=== PATIENT | female | born 1945 | race Caucasian/White ===

== ENCOUNTER 2020-04-22 15:07 | Emergency (ER) | payer OTHER ==
[2020-04-22 15:30] VITALS: BMI 22.6
[2020-04-22] MEDS ORDERED: BAMLANIVIMAB 700 MG in SODIUM CHLORIDE 180 ML IVPB ONE (15:39)
[2020-04-22 16:31] LABS: HEMATOCRIT 37.3 % (32.4-45.2); HEMOGLOBIN 12.3 GM/dL (10.7-15.3); MCH 27.9 pg (25.7-33.7); MEAN CELL VOLUME 84.5 fl (80-96); MEAN PLT VOLUME 7.4 fl (7.5-11.1); PLATELET COUNT 193 K/MM3 (134-434); RBC 4.42 M/mm3 (3.60-5.2); RDW 14.2 % (11.6-15.6); WHITE BLOOD COUNT 3.1 K/mm3 (4.0-10.0)
[2020-04-22 16:49] LABS: CALCIUM 9.3 mg/dL (8.5-10.1); POTASSIUM 3.7 mmol/L (3.5-5.1)
[2020-04-22 16:50] LABS: BLOOD UREA NITROGEN 11.9 mg/dL (7-18)
[2020-04-22 16:54] LABS: CREATININE 0.7 mg/dL (0.55-1.3)
[2020-04-22] MEDS ORDERED: ACETAMINOPHEN 500 MG TABLET (FP) PO ONE (17:55)
[2020-04-22 18:53] VITALS: PULSE 71
[2020-04-22 18:55] VITALS: BP 124/70; TEMP 97.2
== END 2020-04-22 21:00 | disposition home or self-care (01) ==
LOC: JER 15:07
DX: U07.1 COVID-19 (principal)
CPT/HCPCS: 36415; 80048; 85027; 99284-25; M0239; Q0239

== ENCOUNTER 2021-09-21 16:25 | Inpatient (IN) | payer OTHER ==
[2021-09-21] MEDS ORDERED: ACETAMINOPHEN 1000 MG/100 ML BAG IVPB ONE (17:26)
[2021-09-21] MEDS ORDERED: ACETAMINOPHEN INJECTION 100 ML IVPB ONE (18:39)
[2021-09-21] MEDS ORDERED: DIPHTH,PERTUSS(ACELL),TET 0.5 ML DISP.SYRIN IM ONE ×2 (19:05→19:36)
[2021-09-21 19:24] LABS: BASO % 0.8 % (0-2.0); EOS % 2.2 % (0-4.5); HEMATOCRIT 35.4 % (32.4-45.2); HEMOGLOBIN 11.6 GM/dL (10.7-15.3); LYMPH % 14.6 % (8-40); MCH 25.8 pg (25.7-33.7); MCHC 32.7 g/dl (32.0-36.0); MEAN CELL VOLUME 78.8 fl (80-96); MEAN PLT VOLUME 7.6 fl (7.5-11.1); MONO % 5.9 % (3.8-10.2); NEUT % 76.5 % (42.8-82.8); PLATELET COUNT 299 10^3/uL (134-434); RBC 4.49 M/mm3 (3.60-5.2); RDW 15.9 % (11.6-15.6); WHITE BLOOD COUNT 9.1 K/mm3 (4.0-10.0)
[2021-09-21 19:30] LABS: INR 0.97 (0.83-1.09); PROTHROMBIN TIME (PATIENT) 11.2 SEC (9.7-13.0)
[2021-09-21 19:33] LABS: ACTIVATED PTT 30.8 SECONDS (25.2-36.5)
[2021-09-21 19:39] LABS: URINE APPEARANCE CLEAR; URINE BILIRUBIN NEGATIVE (NEGATIVE); URINE COLOR YELLOW; URINE GLUCOSE (UA) NEGATIVE (NEGATIVE); URINE KETONE NEGATIVE (NEGATIVE); URINE LEUK ESTERASE NEGATIVE (NEGATIVE); URINE NITRITE NEGATIVE (NEGATIVE); URINE PROTEIN NEGATIVE (NEGATIVE); URINE UROBILINOGEN 0.2 mg/dL (0.2-1.0)
[2021-09-21 19:57] LABS: ALBUMIN 4.1 g/dl (3.4-5.0); BLOOD UREA NITROGEN 15.2 mg/dL (7-18)
[2021-09-21 20:00] LABS: CREATININE 0.7 mg/dL (0.55-1.3)
[2021-09-21 20:02] LABS: BILIRUBIN,TOTAL 0.5 mg/dL (0.2-1); TOT PROT 7.2 g/dl (6.4-8.2)
[2021-09-21] MEDS ORDERED: ONDANSETRON 4 MG/2 ML VIAL ONE (21:03)
[2021-09-21] MEDS ORDERED: ONDANSETRON 4 MG/2 ML VIAL IVPUSH ONE (21:03)
[2021-09-21] MEDS ORDERED: ONDANSETRON 4 MG/2 ML VIAL IVPUSH PRN (21:20)
[2021-09-21] MEDS ORDERED: ACETAMINOPHEN 1000 MG/100 ML BAG IVPB PRN (21:21)
[2021-09-21] MEDS ORDERED: LABETALOL HCL 5 MG/1 ML (100MG/20 ML VIAL) IVPUSH PRN (21:24)
[2021-09-21] MEDS ORDERED: DEXTROSE 5%-WATER - 250 ML IV SCH (21:30)
[2021-09-21] MEDS ORDERED: MELATONIN 5 MG TABLETS PO PRN (21:36)
[2021-09-21] MEDS ORDERED: CHLORHEXIDINE GLUCONATE 4% CLEANSER FOR DECOLONIZATION TP SCH (22:00)
[2021-09-21] MEDS: MUPIROCIN 2% TOPICAL OINTMENT FOR DECOLONIZATION NS SCH (23:21)
[2021-09-21 23:29] VITALS: BMI 47.9
[2021-09-22] MEDS ORDERED: clonazePAM 0.5 MG TABLET PO ONE (00:07)
[2021-09-22 06:51] LABS: BASO % 0.7 % (0-2.0); EOS % 2.4 % (0-4.5); HEMATOCRIT 30.9 % (32.4-45.2); HEMOGLOBIN 10.3 GM/dL (10.7-15.3); LYMPH % 20.2 % (8-40); MCH 26.3 pg (25.7-33.7); MCHC 33.2 g/dl (32.0-36.0); MEAN CELL VOLUME 79.2 fl (80-96); MEAN PLT VOLUME 7.7 fl (7.5-11.1); MONO % 9.3 % (3.8-10.2); NEUT % 67.4 % (42.8-82.8); PLATELET COUNT 240 10^3/uL (134-434); RBC 3.89 M/mm3 (3.60-5.2); WHITE BLOOD COUNT 5.8 K/mm3 (4.0-10.0)
[2021-09-22 06:52] LABS: ACTIVATED PTT 28.1 SECONDS (25.2-36.5); PROTHROMBIN TIME (PATIENT) 11.5 SEC (9.7-13.0)
[2021-09-22 07:13] LABS: CALCIUM 9.3 mg/dL (8.5-10.1)
[2021-09-22 07:14] LABS: ALBUMIN 3.4 g/dl (3.4-5.0); BLOOD UREA NITROGEN 13.3 mg/dL (7-18); MAGNESIUM 2.1 mg/dL (1.8-2.4)
[2021-09-22] MEDS ORDERED: DEXTROSE 5%-0.45% SALINE 1,000 ML IV SCH ×2 (07:15→07:30)
[2021-09-22 07:17] LABS: CREATININE 0.5 mg/dL (0.55-1.3)
[2021-09-22 07:18] LABS: BILIRUBIN,TOTAL 0.4 mg/dL (0.2-1)
[2021-09-22] MEDS ORDERED: LACTATED RINGERS SOLUTION 1,000 ML/1,000 ML INFUS.BAG IV SCH (09:30)
[2021-09-22] MEDS: MUPIROCIN 2% TOPICAL OINTMENT FOR DECOLONIZATION NS SCH (09:49)
[2021-09-22] MEDS ORDERED: ACETAMINOPHEN 1000 MG/100 ML BAG IVPB PRN (12:01)
[2021-09-22] MEDS ORDERED: LABETALOL HCL 5 MG/1 ML (100MG/20 ML VIAL) IVPUSH PRN (12:01)
[2021-09-22] MEDS ORDERED: ONDANSETRON 4 MG/2 ML VIAL IVPUSH PRN (12:01)
[2021-09-22] MEDS: LACTATED RINGERS SOLUTION 1,000 ML/1,000 ML INFUS.BAG IV SCH (13:10)
[2021-09-22] MEDS ORDERED: TRIMETHOBENZAMIDE HCL 200MG/2ML INJ IM PRN (18:03)
[2021-09-22 21:51] LABS: URINE BARBITURATES NEGATIVE (NEGATIVE)
[2021-09-22 21:52] LABS: COCAINE, UR NEGATIVE (NEGATIVE); METHADONE, UR NEGATIVE (NEGATIVE); PHENCYCLIDINE,URINE NEGATIVE (NEGATIVE); URINE BENZODIAZEPINES NEGATIVE (NEGATIVE)
[2021-09-22 22:03] LABS: OPIATES, URI POSITIVE (NEGATIVE); URINE AMPHETAMINES NEGATIVE (NEGATIVE)
[2021-09-22] MEDS: MELATONIN 5 MG TABLETS PO PRN (22:52)
[2021-09-23] MEDS: LACTATED RINGERS SOLUTION 1,000 ML/1,000 ML INFUS.BAG IV SCH (13:23)
[2021-09-23] MEDS ORDERED: traMADol HCL 50 MG TABLET PO PRN (14:40)
[2021-09-23] MEDS: clonazePAM 0.5 MG TABLET PO PRN (17:10)
[2021-09-23] MEDS ORDERED: SIMETHICONE 80 MG TAB.CHEW (FP) PO PRN (21:15)
[2021-09-23] MEDS: LATANOPROST 0.005% OPHTH SOLN 2.5ML BOTTLE OU SCH (22:24)
[2021-09-23] MEDS: TIMOLOL 0.25% OPHTHALMIC SOL 5 ML BOTTLE OU SCH (22:24)
[2021-09-24] MEDS: ACETAMINOPHEN 325 MG TABLET (FP) PO PRN ×2 (03:36→08:26)
[2021-09-24] MEDS: clonazePAM 0.5 MG TABLET PO PRN ×2 (08:26→21:56)
[2021-09-24 08:44] LABS: EOS % 3.1 % (0-4.5); HEMATOCRIT 31.1 % (32.4-45.2); HEMOGLOBIN 10.4 GM/dL (10.7-15.3); LYMPH % 22.2 % (8-40); MCH 26.4 pg (25.7-33.7); MCHC 33.3 g/dl (32.0-36.0); MEAN CELL VOLUME 79.3 fl (80-96); MEAN PLT VOLUME 7.9 fl (7.5-11.1); MONO % 7.5 % (3.8-10.2); NEUT % 66.2 % (42.8-82.8); PLATELET COUNT 281 10^3/uL (134-434); RBC 3.92 M/mm3 (3.60-5.2); RDW 15.9 % (11.6-15.6); WHITE BLOOD COUNT 6.4 K/mm3 (4.0-10.0)
[2021-09-24 09:13] LABS: ALBUMIN 3.2 g/dl (3.4-5.0)
[2021-09-24 09:14] LABS: BLOOD UREA NITROGEN 13.3 mg/dL (7-18); CALCIUM 9.3 mg/dL (8.5-10.1); MAGNESIUM 2.2 mg/dL (1.8-2.4)
[2021-09-24 09:16] LABS: CREATININE 0.5 mg/dL (0.55-1.3)
[2021-09-24 09:18] LABS: BILIRUBIN,TOTAL 0.4 mg/dL (0.2-1)
[2021-09-24 09:23] LABS: TOT PROT 6.2 g/dl (6.4-8.2)
[2021-09-24] MEDS: TIMOLOL 0.25% OPHTHALMIC SOL 5 ML BOTTLE OU SCH ×2 (09:27→21:54)
[2021-09-24] MEDS: LACTATED RINGERS SOLUTION 1,000 ML/1,000 ML INFUS.BAG IV SCH (13:14)
[2021-09-24] MEDS ORDERED: ONDANSETRON 4 MG TABLET PO ONE (20:33)
[2021-09-24] MEDS: LATANOPROST 0.005% OPHTH SOLN 2.5ML BOTTLE OU SCH (21:55)
[2021-09-25 07:37] LABS: BASO % 1.2 % (0-2.0); EOS % 3.9 % (0-4.5); HEMATOCRIT 31.7 % (32.4-45.2); HEMOGLOBIN 10.7 GM/dL (10.7-15.3); LYMPH % 27.3 % (8-40); MCH 26.6 pg (25.7-33.7); MCHC 33.7 g/dl (32.0-36.0); MEAN CELL VOLUME 78.9 fl (80-96); MEAN PLT VOLUME 7.7 fl (7.5-11.1); MONO % 7.3 % (3.8-10.2); NEUT % 60.3 % (42.8-82.8); PLATELET COUNT 329 10^3/uL (134-434); RBC 4.01 M/mm3 (3.60-5.2); RDW 15.8 % (11.6-15.6); WHITE BLOOD COUNT 5.2 K/mm3 (4.0-10.0)
[2021-09-25 08:02] LABS: ALBUMIN 3.4 g/dl (3.4-5.0); BLOOD UREA NITROGEN 11.1 mg/dL (7-18); CALCIUM 9.7 mg/dL (8.5-10.1); MAGNESIUM 2.2 mg/dL (1.8-2.4)
[2021-09-25 08:05] LABS: CREATININE 0.5 mg/dL (0.55-1.3)
[2021-09-25 08:06] LABS: TOT PROT 6.4 g/dl (6.4-8.2)
[2021-09-25 08:09] LABS: BILIRUBIN,TOTAL 0.4 mg/dL (0.2-1)
[2021-09-25] MEDS: TIMOLOL 0.25% OPHTHALMIC SOL 5 ML BOTTLE OU SCH (10:08)
[2021-09-25] MEDS: LACTATED RINGERS SOLUTION 1,000 ML/1,000 ML INFUS.BAG IV SCH (12:11)
[2021-09-25] MEDS: clonazePAM 0.5 MG TABLET PO PRN ×2 (12:17→22:02)
[2021-09-25] MEDS: MELATONIN 5 MG TABLETS PO PRN (22:02)
[2021-09-25] MEDS: LATANOPROST 0.005% OPHTH SOLN 2.5ML BOTTLE OU SCH (22:03)
[2021-09-26 08:24] LABS: BASO % 1.1 % (0-2.0); EOS % 3.6 % (0-4.5); HEMATOCRIT 34.6 % (32.4-45.2); HEMOGLOBIN 11.6 GM/dL (10.7-15.3); LYMPH % 23.3 % (8-40); MCH 26.4 pg (25.7-33.7); MCHC 33.4 g/dl (32.0-36.0); MEAN CELL VOLUME 79.2 fl (80-96); MEAN PLT VOLUME 7.8 fl (7.5-11.1); MONO % 7.4 % (3.8-10.2); NEUT % 64.6 % (42.8-82.8); PLATELET COUNT 382 10^3/uL (134-434); RBC 4.37 M/mm3 (3.60-5.2); WHITE BLOOD COUNT 5.8 K/mm3 (4.0-10.0)
[2021-09-26 08:48] LABS: CALCIUM 9.8 mg/dL (8.5-10.1)
[2021-09-26 08:49] LABS: ALBUMIN 3.3 g/dl (3.4-5.0); BLOOD UREA NITROGEN 17.7 mg/dL (7-18); MAGNESIUM 2.3 mg/dL (1.8-2.4)
[2021-09-26 08:52] LABS: CREATININE 0.6 mg/dL (0.55-1.3)
[2021-09-26 08:53] LABS: BILIRUBIN,TOTAL 0.5 mg/dL (0.2-1)
[2021-09-26 08:54] LABS: TOT PROT 6.6 g/dl (6.4-8.2)
[2021-09-26] MEDS: TIMOLOL 0.25% OPHTHALMIC SOL 5 ML BOTTLE OU SCH (09:45)
[2021-09-26] MEDS: clonazePAM 0.5 MG TABLET PO PRN ×2 (13:02→21:34)
[2021-09-26] MEDS: LACTATED RINGERS SOLUTION 1,000 ML/1,000 ML INFUS.BAG IV SCH (15:43)
[2021-09-26] MEDS ORDERED: POLYETHYLENE GLYCOL (HEALTHYLAX) 3350 17 GM PACKET PO ONE (17:04)
[2021-09-26] MEDS: MELATONIN 5 MG TABLETS PO PRN (21:34)
[2021-09-26] MEDS: LATANOPROST 0.005% OPHTH SOLN 2.5ML BOTTLE OU SCH (21:34)
[2021-09-26] MEDS: POLYETHYLENE GLYCOL (HEALTHYLAX) 3350 17 GM PACKET PO SCH (21:39)
[2021-09-27 08:06] LABS: BASO % 1.2 % (0-2.0); EOS % 3.7 % (0-4.5); HEMATOCRIT 33.3 % (32.4-45.2); HEMOGLOBIN 11.1 GM/dL (10.7-15.3); MCH 26.2 pg (25.7-33.7); MCHC 33.4 g/dl (32.0-36.0); MEAN CELL VOLUME 78.5 fl (80-96); MEAN PLT VOLUME 7.4 fl (7.5-11.1); MONO % 7.9 % (3.8-10.2); NEUT % 60.2 % (42.8-82.8); PLATELET COUNT 378 10^3/uL (134-434); RBC 4.24 M/mm3 (3.60-5.2); WHITE BLOOD COUNT 5.9 K/mm3 (4.0-10.0)
[2021-09-27 08:33] LABS: BLOOD UREA NITROGEN 17.3 mg/dL (7-18)
[2021-09-27 08:34] LABS: ALBUMIN 3.3 g/dl (3.4-5.0); CALCIUM 9.5 mg/dL (8.5-10.1); MAGNESIUM 2.2 mg/dL (1.8-2.4)
[2021-09-27 08:36] LABS: CREATININE 0.6 mg/dL (0.55-1.3)
[2021-09-27 08:38] LABS: BILIRUBIN,TOTAL 0.6 mg/dL (0.2-1); TOT PROT 6.5 g/dl (6.4-8.2)
[2021-09-27] MEDS: clonazePAM 0.5 MG TABLET PO PRN (09:27)
[2021-09-27] MEDS: POLYETHYLENE GLYCOL (HEALTHYLAX) 3350 17 GM PACKET PO SCH (09:32)
[2021-09-27] MEDS: TIMOLOL 0.25% OPHTHALMIC SOL 5 ML BOTTLE OU SCH (09:32)
[2021-09-27] MEDS ORDERED: BACITRACIN 15 GM TUBE TOPICAL OINTMENT TP SCH (11:30)
[2021-09-27] MEDS: LACTATED RINGERS SOLUTION 1,000 ML/1,000 ML INFUS.BAG IV SCH (12:21)
[2021-09-27 14:52] VITALS: BP 113/66; PULSE 100; TEMP 98
== END 2021-09-27 17:56 | disposition home health service (06) | DRG 84 ==
LOC: JER 16:25 → JICU 20:31 → JERBED 21:42 → JICU 23:10 → J4W 09-22 21:15
PROVIDERS: ADMIT Specialist; ATTEND Nurse Practitioner Family
PROC: 0HQ1XZZ Repair Face Skin, External Approach (ICD-10-PCS; principal; 2021-09-21)
DX: S06.6X9A Traumatic subarachnoid hemorrhage with loss of consciousness of unspecified duration, initial encounter (principal); S06.2X9A Diffuse traumatic brain injury with loss of consciousness of unspecified duration, initial encounter; S01.81XA Laceration without foreign body of other part of head, initial encounter; S60.812A Abrasion of left wrist, initial encounter; E78.5 Hyperlipidemia, unspecified; F41.9 Anxiety disorder, unspecified; R55 Syncope and collapse; S62.101A Fracture of unspecified carpal bone, right wrist, initial encounter for closed fracture; S62.102A Fracture of unspecified carpal bone, left wrist, initial encounter for closed fracture; G43.809 Other migraine, not intractable, without status migrainosus; R26.89 Other abnormalities of gait and mobility; M48.02 Spinal stenosis, cervical region; G20 Parkinson's disease; W18.39XA Other fall on same level, initial encounter; Y92.488 Other paved roadways as the place of occurrence of the external cause; Z85.3 Personal history of malignant neoplasm of breast
CPT/HCPCS: 36415; 70450-TC; 70486-TC; 70496-TC; 70498-TC; 71046-TC-FY; 72050-TC-FY; 72100-TC-FY; 72125-TC; 72141-TC; 72148-TC; 72170-TC-FY; 73110-TC-LT-FY; 73110-TC-RT-FY; 80053; 80307; 81003; 82550; 82553; 82962; 83036; 83605; 83735; 84100; 84443; 84484; 85025; 85379; 85610; 85730; 86850; 86900; 86901; 87086; 90715; 93005; 93010; 93306-TC; 93880-TC; 93970-TC; 95816; 97116-GP; 97162-GP; 99285-25; C9803-CS; Q9967; U0003; U0005